=== PATIENT | female | born 1990 | race Caucasian/White ===

== ENCOUNTER 2019-06-14 18:19 | Emergency (ER) | payer SELFPAY ==
[2019-06-14] MEDS ORDERED: DEXAMETHASONE SOD PHOS INJ 10 MG/1 ML VIAL IM ONE (20:44)
[2019-06-14] MEDS ORDERED: ACETAMINOPHEN 325 MG TABLET PO ONE (20:56)
[2019-06-14] MEDS ORDERED: IBUPROFEN 600 MG TABLET PO ONE (20:56)
--- NOTE | 2019-06-14 20:56 | ER Document Report ---
HPI - HPI Patient complains to provider of: fever, body aches, sore throat Time Seen by Provider: 06/14/19 19:51 Context: 28-year-old female with remote history of non-Hodgkin's lymphoma currently in remission presents to the emergency department with chief complaint of fever, sore throat, body aches, general malaise since today. Patient states she had a T-max of 103.4 at home today and did not go to work. Patient says that she has a persistent cough that is nonproductive. Patient denies headache or photophobia, denies rhinorrhea, denies shortness of breath or chest pain, denies nausea/vomiting/diarrhea. Patient does complain of left ear pain. Past Medical History - Social History Smoking Status: Unknown if Ever Smoked Family History: None Vertical Provider Document - CONSTITUTIONAL Notes: Reviewed vital signs and nursing note as charted by RN. CONSTITUTIONAL: Well-appearing, well-nourished HEAD: Normocephalic; atraumatic; No swelling EYES: PERRL; Conjunctivae clear, no drainage; EOMI ENT: External ears without lesions; External auditory canal is patent with mild inflammation of the left; TMs without erythema but left has an orange colored plaque on, landmarks clear and well visualized; no rhinorrhea; Pharynx with erythema and without lesions, 1+ B tonsillar hypertrophy, airway patent, mucous membranes pink and moist NECK: Supple, no cervical lymphadenopathy, no masses CARD: Very mild tachycardia manually checked rate is 102, this is after patient had a coughing fit 2 times; no murmurs, no rubs, no gallops, capillary refill < 2 seconds, symmetric pulses RESP: Respiratory rate and effort are normal. There is normal chest excursion. No respiratory distress, no retractions, no stridor, no nasal flaring, no accessory muscle use. The lungs are clear to auscultation bilaterally, no wheezing, no rales, no rhonchi. ABD/GI: Normal bowel sounds; non-distended; soft, non-tender, no rebound, no guarding, no palpable organomegaly EXT: Normal ROM in all joints; non-tender to palpation; no effusions, no edema SKIN: Normal color for age and race; warm; dry; good turgor; no acute lesions noted NEURO: No facial asymmetry; Moves all extremities equally; Motor and sensory function intact - INFECTION CONTROL TRAVEL OUTSIDE OF THE [place] IN LAST 30 DAYS: No Course - Re-evaluation Re-evalutation: 06/14/19 20:53 Presentation of 1 day of sore throat and fever in an otherwise well-appearing patient. Rapid strep is negative. History and exam are not consistent with a retropharyngeal abscess or peritonsillar abscess. Airway is patent. No difficulty handling oral secretions. Vitals within normal limits. Patient was treated with a dose of dexamethasone and advised on symptomatic care. Patient also with a probable otitis externa and I will treat with drops. Suspect likely viral pharyngitis. At this time will discharge with return precautions and follow-up recommendations. Verbal discharge instructions given a the bedside and opportunity for questions given. Medication warnings reviewed. Patient is in agreement with this plan and has verbalized understanding of return precautions and the need for primary care follow-up in the next 24-72 hours. - Vital Signs Vital signs: Temp Pulse Resp BP Pulse Ox 98.2 F 94 22 H 128/81 H 98 06/14/19 18:23 06/14/19 18:23 06/14/19 18:23 06/14/19 18:23 06/14/19 18:23 Discharge - Discharge Clinical Impression: Body aches, Cough, Sore throat Pharyngitis Qualifiers: Pharyngitis/tonsillitis etiology: unspecified etiology Qualified Code(s): J02.9 - Acute pharyngitis, unspecified Condition: Good Disposition: HOME, SELF-CARE Additional Instructions: Your strep test is negative. Your symptoms are likely due to an viral infection and will resolve in the next 1-2 weeks. You have also been given a dose of steroids to help with your throat discomfort. Please continue to take ibuprofen 600 mg every 6 hours or Tylenol 1000 mg every 6 hours as needed for throat discomfort. You can also gargle with salt water. Continue to drink plenty of fluids. Please establish primary care and make any appointment. Please return to the emergency department if you start to develop signs of pneumonia like we talked about, persistent cough and shortness of breath, rapid breathing, rapid heart rate, persistent fever. Return if you become unable to swallow, have difficulty breathing, pass out, have persistent vomiting that prevents you from being able to tolerate fluids, or have any other symptoms that are concerning to you. Forms: Return to Work
[2019-06-14] MEDS ORDERED: BENZONATATE 100 MG CAPSULE PO ONE (20:57)
[2019-06-14 21:28] VITALS: BP 128/76
== END 2019-06-14 21:31 | disposition home or self-care (01) ==
LOC: ER 18:19
DX: J02.9 Acute pharyngitis, unspecified (principal); J35.1 Hypertrophy of tonsils; R50.9 Fever, unspecified; R53.81 Other malaise; R05 Cough; R00.0 Tachycardia, unspecified; Z85.72 Personal history of non-Hodgkin lymphomas
CPT/HCPCS: 99283; 96374; 87070; 87880; J1100

== ENCOUNTER 2019-08-02 11:38 | Emergency (ER) | payer SELFPAY ==
[2019-08-02 11:44] VITALS: BP 148/79
== END 2019-08-02 12:05 | disposition left against medical advice (07) ==
LOC: ER 11:38
DX: Z53.21 Procedure and treatment not carried out due to patient leaving prior to being seen by health care provider (principal)